=== PATIENT | female | born 2000 | race Caucasian/White ===

== ENCOUNTER 2023-04-09 10:06 | Outpatient (CLI) | payer OTHER, SELFPAY ==
--- NOTE | ~2023-04-09 | US_ITS ---
EXAMINATION: US venous doppler [facility] DATE: 04/09/2023 10:41 INDICATION: Lower limb pain TECHNIQUE: Grayscale ultrasound images without and with compression and Doppler ultrasound images of the left lower extremity veins were obtained. COMPARISON: None. FINDINGS: The visualized portions of left common femoral vein, profunda (deep) femoral vein, femoral vein, popl iteal vein, peroneal veins, posterior tibial veins, gastrocnemius vein and greater saphenous vein out flow are patent. IMPRESSION: 1. No deep venous thrombosis in the left lower limb. Reviewed, dictated and finalized at location A.
== END 2023-04-09 10:07 | disposition home or self-care (01) ==
PROVIDERS: Visit Provider Obstetrics & Gynecology
DX: M79.606 Pain in leg, unspecified (principal); Z33.1 Pregnant state, incidental; M79.662 Pain in left lower leg
CPT/HCPCS: 93971

== ENCOUNTER 2023-09-04 16:14 | Observation (INO) | payer OTHER, SELFPAY ==
[2023-09-04 17:45] LABS: Appearance Urine Clear (Clear); Bilirubin Urine Negative (Negative); Blood Urine Negative (Negative); Color Urine Yellow (Yellow); Glucose Urine UA Negative (Negative); Ketones Urine Negative (Negative); Leukocyte Esterase Ur Negative LEU/UL (Negative); Nitrate Urine Negative (Negative); Protein Urine Negative (Negative); Specific Grav Ur 1.008 (1.001-1.035); Urobilinogen Urine 0.2 mg/dL (<2.0)
[2023-09-04 17:48] LABS: Add Urine Microscopic? NO
--- NOTE | 2023-09-16 08:12 | PM.OBTRLD ---
OB - Triage/Final Diagnosis Visit Information Comments/Additional reasons for admission: I have assessed the risk for this patient, Leonor Phillips, and determined that she would benefit from observation care. Evaluation Laboratory results: Laboratory Tests 09/04/23 17:14 Urine Color Yellow Urine Appearance Clear Urine pH 6.0 Ur Specific [place] 1.008 Urine Protein Negative Urine Glucose (UA) Negative Urine Ketones Negative Ur Blood (Man) Negative Urine Nitrate Negative Urine Bilirubin Negative Urine Urobilinogen 0.2 Leukocyte Esterase Rfl Negative Final Diagnosis (1) False labor: Code(s): O47.9 - False labor, unspecified Status: Acute
== END 2023-09-04 18:05 | disposition home or self-care (01) ==
PROVIDERS: Admitting Provider Obstetrics & Gynecology; Visit Provider Obstetrics & Gynecology
DX: O47.1 False labor at or after 37 completed weeks of gestation (principal); Z3A.37 37 weeks gestation of pregnancy
CPT/HCPCS: 81003; 84112; G0378; G0379

== ENCOUNTER 2023-09-16 04:40 | Inpatient (IN) | payer OTHER, SELFPAY ==
[2023-09-16] VITALS (104 sets, daily range): BP systolic 104–141; BP diastolic 52–89; PULSE 62–270; RESP 16–20; TEMP 36.4–36.6; O2SAT 93–100; BMI 30.8
[2023-09-16 05:10] LABS: Basophils Percent Auto 0.3 % (0.2-1.2); Eosinophils Percent Auto 0.3 % (0-4.4); Hematocrit 36.6 % (37.0-47.0); Hemoglobin 11.7 g/dL (12.0-15.0); Immature Granulocyte Absolute 0.15 K/mm3 (0.00-0.031); Immature Granulocyte Percent A 1.4 % (0-0.5); Lymphocytes Absolute Auto 2.94 K/mm3 (0.9-3.2); Lymphocytes Percent Auto 26.5 % (18.3-44.2); Mean Corpuscular Hemoglobin 28.2 pg (26-34); Mean Corpuscular Volume 88.2 fl (80-100); Mean Platelet Volume 10.6 fl (7.4-10.4); Monocytes Absolute Auto 1.1 K/mm3 (0.1-0.6); Monocytes Percent Auto 9.7 % (2.6-8.5); Neutrophils Absolute Auto 6.9 K/mm3 (1.3-6.7); Neutrophils Percent Auto 61.8 % (45.5-73.1); Platelet Count Result 257 k/mm3 (150-375); Red Blood Count 4.15 M/mm3 (4.2-5.4); Red Cell Distribution Width 14.2 % (11.5-14.5); White Blood Count 11.1 K/mm3 (4.5-10.0)
[2023-09-16] MEDS: FAMOTIDINE 20 MG/2 ML VIAL IV PUSH (05:24)
[2023-09-16] MEDS: OXYTOCIN 30 UNITS/NS 500 ML 30 UNITS/500 ML BAG 6 UNITS IV CONT (05:29)
[2023-09-16] MEDS: LACTATED RINGERS 1,000 ML 125 ML IV CONT (05:30)
--- NOTE | 2023-09-16 06:15 | WPDANESEPPF ---
Anes - Initial Pre Proc Eval Procedure: Labor Epidural Date/Time: 09/16/23 06:15 Surgeon: Tarik Knox MD Pre Op Diagnosis: Labor Pain Pre Op Diagnosis: IOL Patient Data Age: 23 Gender: F Height: 1.65 m Weight: 84 kg Last Vital Signs Pulse 105 H 09/16/23 05:15 BP 141/88 H 09/16/23 05:15 Allergies Allergy/AdvReac Type Severity Reaction Status Date / Time No Known Allergies Allergy Verified 08/20/23 15:26 Home Medications Medication Instructions Recorded Confirmed Type Classic 1 tab-cap PO DAILY 08/20/23 08/20/23 History Lexapro 10 mg PO DAILY 08/20/23 08/20/23 History Laboratory Tests 09/16/23 04:50 WBC 11.1 H K/mm3 (4.5-10.0) RBC 4.15 L M/mm3 (4.2-5.4) Hgb 11.7 L g/dL (12.0-15.0) Hct 36.6 L % (37.0-47.0) MCV 88.2 fl (80-100) MCH 28.2 pg (26-34) MCHC 32.0 g/dl (32-36) RDW 14.2 % (11.5-14.5) Plt Count 257 k/mm3 (150-375) MPV 10.6 H fl (7.4-10.4) Immature Gran % (Auto) 1.4 H % (0-0.5) Neut % (Auto) 61.8 % (45.5-73.1) Lymph % (Auto) 26.5 % (18.3-44.2) [place] % (Auto) 9.7 H % (2.6-8.5) Eos % (Auto) 0.3 % (0-4.4) Baso % (Auto) 0.3 % (0.2-1.2) Lymph # (Auto) 2.94 K/mm3 (0.9-3.2) [place] # (Auto) 1.1 H K/mm3 (0.1-0.6) Eos # (Auto) 0.0 K/mm3 (0-0.3) Baso # (Auto) 0.0 K/mm3 (0.0-0.1) Abs Immat Gran (auto) 0.15 H K/mm3 (0.00-0.031) Absolute Neuts (auto) 6.9 H K/mm3 (1.3-6.7) Absolute Nucleated RBC 0.0 K/mm3 (0.0-0.012) Nucleated RBC % 0.0 % (0.0-0.2) RPR Pending Patient hx anesthesia problems: none Family hx anesthesia problems: none Results Review: All pre-operative results and documents have been reviewed as part of the pre-operative evaluation. PMFSH Family History Family History Other No pertinent family history Social History Social History Smoking status: Former smoker Tobacco type: e-cigarettes/vaping Second hand tobacco smoke exposure: No Substance use: never Do You Feel Safe in your Home?: Yes Lack of Transportation: No Lack of Food: Never True Current Housing: I Have Housing Concerned About Future Housing: No Difficulty Paying Gas/Electric Bills: No Difficulty Paying for Meds: No Currently Unemployed: No Education: High School Diploma/GED Difficulty w/ Childcare or Family Care: No Spiritual care concerns: No Anes - Eval Final PreProcedure Day of Procedure 09/16/23 06:15 Patient weight: normal Heart: regular rate and rhythm Lungs: clear to auscultation Neurological: alert and oriented ASA classification: II Emergent: no Anesthetic plan: proceed Anesthesia type and monitoring: regional epidural and standard monitoring Results Review: All pre-operative results and documents have been reviewed as part of the pre-operative evaluation. Informed Consent: The patient's anesthetic plan and its attendant risks and benefits were discussed with the patient/family/POA. Questions were solicited and answers provided to the satisfaction of the patient/family/POA.
--- NOTE | 2023-09-16 06:40 | PM.IMHP ---
H&P: HPI History of Present Illness Date/Time: 09/16/23 06:40 Chief Complaint: Term for induction of labor Narrative: this is a 23-year-old 1 para 0 whose last menstrual period was 12/13/2022, EDC is 09/20/2023, confirmed by 10 week ultrasound presents at 39 weeks gestation for induction of labor. She is negative for group B strep and has a favorable cervix. Risks and benefits of induction reviewed [facility] Family History Family History Other No pertinent family history Social History Social History Smoking status: Former smoker Tobacco type: e-cigarettes/vaping Second hand tobacco smoke exposure: No Substance use: never Do You Feel Safe in your Home?: Yes Lack of Transportation: No Lack of Food: Never True Current Housing: I Have Housing Concerned About Future Housing: No Difficulty Paying Gas/Electric Bills: No Difficulty Paying for Meds: No Currently Unemployed: No Education: High School Diploma/GED Difficulty w/ Childcare or Family Care: No Spiritual care concerns: No Meds Home Medications and Allergies Home Medications Medication Instructions Recorded Confirmed Type Classic 1 tab-cap PO DAILY 08/20/23 08/20/23 History Lexapro 10 mg PO DAILY 08/20/23 08/20/23 History Allergies Allergy/AdvReac Type Severity Reaction Status Date / Time No Known Allergies Allergy Verified 08/20/23 15:26 Vital Signs Vital Signs - 24 hr 09/16/23 05:11 09/16/23 05:15 09/16/23 06:19 Pulse Rate 105 H 105 H Blood Pressure 137/89 141/88 H Pulse Oximetry 93 09/16/23 06:24 09/16/23 06:27 09/16/23 06:29 Pulse Rate 270 H Blood Pressure 124/72 Pulse Oximetry 100 99 09/16/23 06:34 09/16/23 06:35 09/16/23 06:39 Pulse Rate 98 98 Blood Pressure 137/86 132/77 Pulse Oximetry 96 97 09/16/23 06:40 Pulse Rate 86 Blood Pressure 117/70 Pulse Oximetry Exam Const: General: cooperative, healthy appearing and comfortable Nutritional Appearance: average body habitus Orientation/consciousness: oriented to person, oriented to place and oriented to time HENMT: Head: normal to inspection Resp: Effort & Inspection: normal respiratory effort Cardio: Rate: regular rate Rhythm: regular rhythm Heart sounds: S1 normal heart sound present and S2 normal heart sound present GI: Inspection: normal to inspection ( gravid soft uterus) : External Female Exam: normal external appearance Speculum Exam - Vagina: normal appearance of the vagina Speculum Exam - Cervix: normal appearance of the cervix ( cervix . FHTs reassuring. Epidural in) H&P: Results Labs Labs: Short CBC 09/16/23 Range/Units 04:50 WBC 11.1 H (4.5-10.0) K/mm3 Hgb 11.7 L (12.0-15.0) g/dL Hct 36.6 L (37.0-47.0) % Plt Count 257 (150-375) k/mm3 Assessment and Plan Assessment and plan (1) Term : Code(s): Z34.90 - Encounter for supervision of normal , unspecified, unspecified trimester Status: Acute Plan medical induction of labor. Epidural in and working. Spontaneous vaginal delivery is expected.
--- NOTE | 2023-09-16 06:43 | WPDANESEPN ---
Anes - Epidural Procedure Note Date/Time: 09/16/23 06:43 Consent: I have discussed with the patient/family/POA, the placement of an epidural catheter and the use of epidural narcotic/local anesthetic for labor analgesia and/or postoperative pain management, including associated potential risks, benefits, complications and side effects. I have discussed alternative methods of labor analgesia and/or postoperative pain management. The patient/family/POA, understand(s) and wish(es) to proceed with epidural narcotic/local anesthetic for labor analgesia and/or postoperative pain management. Time-Out: A pre-procedural Time-Out was completed immediately before starting the procedure and confirmed: Patient Identification, Site, Procedure, Patient Position and the Availability of Requisite Equipment. Clinical Indications: Labor pain Epidural Insertion Note Patient position: sitting Skin prep: chlorhexidine and sterile drape Needle: 18g Tuohy-Schliff Catheter: 20g Unstyleted Technique: Loss of resistance. Level of insertion: L3/4 Catheter skin juventino (cm): 10 Length in epidural space (cm): 5 Skin anesthesia: lidocaine 1% Test dose: 1.5% Lidocaine with 1:[id number] Epi, negative for subarachnoid Inj and negative for intravascular Inj Time of test dose: 06:34 Observations: tolerated well Complications: none
[2023-09-16] MEDS: ONDANSETRON INJ 4 MG/2 ML VIAL IV PUSH (06:49)
--- NOTE | 2023-09-16 09:31 | PM.DS ---
DS: Admitting Diagnosis Discharge Date 09/17/2023 Admitting Diagnosis Term DS: Discharge Diagnosis Discharge Diagnosis (1) Term : Code(s): Z34.90 - Encounter for supervision of normal , unspecified, unspecified trimester Status: Acute DS: Summary Hospital Course Reason for hospitalization: patient was admitted for induction of labor at39+ weeks gestation on 09/16/2023 Hospital Course: patient with successful spontaneous vaginal delivery at 9:20 a.m. on 09/16/2023. Her hospital course was unremarkable. She remained afebrile. She was up, voiding difficulty, eating regular diet, ambulating, generally without complaints Time Spent with Patient Time attestation: Total time spent providing and/or coordinating discharge services: Exam Const: General: cooperative, healthy appearing and comfortable Nutritional Appearance: average body habitus Orientation/consciousness: oriented to person, oriented to place and oriented to time Resp: Effort & Inspection: normal respiratory effort Cardio: Rate: regular rate Rhythm: regular rhythm Heart sounds: S1 normal heart sound present and S2 normal heart sound present GI: Inspection: normal to inspection ( fundus firm below umbilicus) DS: Data Data Completed and Pending Labs on day of discharge: Labs from last 24 hours 09/16/23 04:50 WBC 11.1 H RBC 4.15 L Hgb 11.7 L Hct 36.6 L MCV 88.2 MCH 28.2 MCHC 32.0 RDW 14.2 Plt Count 257 MPV 10.6 H Immature Gran % (Auto) 1.4 H Neut % (Auto) 61.8 Lymph % (Auto) 26.5 [place] % (Auto) 9.7 H Eos % (Auto) 0.3 Baso % (Auto) 0.3 Lymph # (Auto) 2.94 [place] # (Auto) 1.1 H Eos # (Auto) 0.0 Baso # (Auto) 0.0 Abs Immat Gran (auto) 0.15 H Absolute Neuts (auto) 6.9 H Absolute Nucleated RBC 0.0 Nucleated RBC % 0.0 RPR Pending Blood Type O Positive Antibody Screen Negative Discharge Plan Discharge Attending physician on discharge: Tarik Duran Discharging Clinician: Tarik Duran Patient Disposition: Home, Self-Care Activity: may shower and pelvic rest Diet: heart healthy Wound Care Instructions: follow printed instructions Patient Instructions: Antibiotic Form Stand Alone Forms: General Discharge Information Follow-up/Referrals: Tarik Duran MD [Physician] - Discharge Medications: Continued Classic 1 tab-cap PO DAILY Lexapro 10 mg PO DAILY Date of admission: 09/16/23 04:40 Primary Care Provider: PHYSICIAN NOT ON STAFF,NONSTAFF Admitting Provider: Tarik Duran Attending physician on admission: Tarik Duran Condition: Stable
--- NOTE | 2023-09-16 09:33 | PM.OBPRVD ---
OB - Vaginal Delivery Note Procedure Delivery date: 09/16/23 Events: Elective Induction of Labor Induction method: AROM Delivery augmentation: Pitocin Delivery monitor: External FHT and External Uterine Route of delivery: Episiotomy description: None Laceration Description: Perineal - 1st Degree Delivery repair: vicryl Quantitative Blood Loss (ml): 61 Anesthesia type: Epidural Disposition: Floor Complications: No immediate complications Baby Date of : 09/16/23 Time of : 09:20 Weeks of gestation at delivery: 39 Infant gender: Male presentation: vertex position: Right Occiput Anterior Placenta delivery description: Spontaneous Cord Vessel Description: 3 Vessels score one minute: 8 score five minutes: 9
[2023-09-16] MEDS: OXYTOCIN 30 UNITS/NS 500 ML 30 UNITS/500 ML BAG 125 UNITS IV CONT (09:53)
--- NOTE | 2023-09-16 11:40 | PC.NURSE ---
Patient transferred to post room #292 via wheelchair. Support person present. Oriented to unit, room, information board, rooming in, admission packet and security measures. Patient verbalizes understanding.
[2023-09-16 14:37] LABS: Rapid Plasma Reagin Non-Reactive (NonReactive)
[2023-09-16] MEDS: ACETAMINOPHEN 325 MG TABLET 650 MG PO (15:55)
[2023-09-16] MEDS: DOCUSATE SODIUM 100 MG CAPSULE PO (15:57)
[2023-09-17] VITALS: BP 102/61; PULSE 68; RESP 16; TEMP 36.4; O2SAT 100
[2023-09-17] MEDS: ACETAMINOPHEN 325 MG TABLET 650 MG PO (04:39)
[2023-09-17 06:05] LABS: Hematocrit 31.9 % (37.0-47.0); Hemoglobin 9.7 g/dL (12.0-15.0)
--- NOTE | 2023-09-17 06:13 | PM.OBPNVD ---
OB - PN: Subj Subjective Date/time seen: 09/17/23 06:13 Patient comments: no complaints and pain well controlled baby status: doing well OB - PN: Obj Data Labs 09/16/23 04:50 Labs: Laboratory Results - last 24 hr 09/16/23 04:50 RPR Non-reactive Blood Type O Positive Antibody Screen Negative OB - PN A/P Plan day: 1 Plan: routine care Time Spent With Patient Time: Total time spent is greater than 50% in coordination of care (as documented) at patient's floor/unit and/or counseling patient: Time with patient: less than 15 minutes Exam Const: General: cooperative, healthy appearing and comfortable Nutritional Appearance: average body habitus Orientation/consciousness: oriented to person, oriented to place and oriented to time HENMT: Head: normal to inspection Resp: Effort & Inspection: normal respiratory effort Cardio: Rate: regular rate Rhythm: regular rhythm Heart sounds: S1 normal heart sound present and S2 normal heart sound present GI: Inspection: normal to inspection
[2023-09-17] MEDS: MULTIVIT/MIN/PREN/FOL AC/IRON TABLET 1 TAB PO (07:24)
[2023-09-17] MEDS: POLYSACCHARIDE IRON COMPLEX 150 MG CAPSULE PO ×2 (07:24→17:30)
[2023-09-17] MEDS: DOCUSATE SODIUM 100 MG CAPSULE PO (07:24)
[2023-09-17] MEDS: IBUPROFEN 600 MG TABLET PO ×3 (07:26→21:35)
[2023-09-17 08:20] VITALS: BP 111/68; PULSE 68; RESP 16; TEMP 36.8; O2SAT 100
--- NOTE | 2023-09-17 08:22 | WPDANLDPN2 ---
Anes-Prog Note L&D Date/Time: 09/17/23 08:22 Neuro status: Neuro function grossly intact. Cardiovascular status: normal Respiratory status: normal Airway patency: baseline Mental status: baseline Post-Op hydration status: normal Vital Signs: Last Vital Signs Temp 36.4 C 09/17/23 00:00 Pulse 68 09/17/23 00:00 Resp 16 09/17/23 00:00 BP 102/61 09/17/23 00:00 Pulse Ox 100 09/17/23 00:00 O2 Del Method Room Air 09/17/23 07:30 Pain score (VAS): 0 I/O: Intake & Output 09/16/23 09/17/23 09/17/23 23:59 07:59 15:59 Intake Total 240 Balance 240 Post-procedural complaints: none Patient feedback: Patient satisfied with anesthetic care.
--- NOTE | 2023-09-17 16:10 | PC.NURSE ---
[phone] Introductions were made, then consulted with patient to assess needs related to . Mother led the conversation with her?plans to feed?her infant, the?experience so far and mother has latched to the left breast using the nipple shield. Reviewed good handwashing, cleaning the nipple shield and the appropriate way to apply and use as a tool. Discussed with mom the nipple shield precautions, possible complications associated with the risks and benefits. Reviewed practicing with a nipple shield, then without and how to protect the milk supply and production. After taking off the shield the visual assessment shows to small blood blisters on the left nipple. Mother is willing to latch infant without the nipple shield and latched optimally to the left breast in cross cradle position. Education given to the mother of how to visualize the suckling (with good rocking jaw motion), swallows (dropping of the lower jaw) and how to listen for drinking at the breast (the ka sound). Infant was able to maintain latch without pain to mother protecting the nipple with optimal positioning and latching with/without the nipple shield. Reviewed good handwashing when , touching the breast/nipples to prevent infection and cleaning of the nipple shield if used to latch. Mother voiced understanding of skin to skin, stimulating with massage touch, responsive feedings, hand expressed colostrum, talking to to encourage if it has been 2 -2.5 hours since the start of the last , to call if does not latch, or if there is discomfort with . Resources used for education were facilitated with the tool, mom and baby guide. Inpatient/outpatient resources provided with feeding sheet, name written on the communication board, and the mom/baby guide. Parents voiced understanding of information, demonstrated learning, will call if there is a request for assistance and mother has a [facility] resource by the name of Rosaline to meet with at home after discharge tomorrow. Reported to the Primary RN.
[2023-09-17 19:00] VITALS: BP 118/80; PULSE 68; RESP 18; TEMP 36.8; O2SAT 98
[2023-09-18 08:05] VITALS: BP 106/67; PULSE 75; RESP 16; TEMP 36.6; O2SAT 100
[2023-09-18] MEDS: MULTIVIT/MIN/PREN/FOL AC/IRON TABLET 1 TAB PO (08:11)
[2023-09-18] MEDS: IBUPROFEN 600 MG TABLET PO (08:11)
[2023-09-18] MEDS: DOCUSATE SODIUM 100 MG CAPSULE PO (08:11)
[2023-09-18] MEDS: POLYSACCHARIDE IRON COMPLEX 150 MG CAPSULE PO (08:11)
--- NOTE | 2023-09-18 10:02 | PC.NURSE ---
Patient viewed the discharge video Mother & Baby Care, The First Two Weeks . Patient was given the opportunity and encouraged to ask questions. Patient verbalized understanding of information shared and has been given the mother/baby guide for home reference.
--- NOTE | 2023-09-18 12:32 | PC.NURSE ---
Pt. has Pedi appointment scheduled 11:00 on . No follow-up appointment scheduled
--- NOTE | 2023-09-18 13:19 | PC.NURSE ---
[id number] Mother led the conversation with her experience so far, plan to feed her , and her ability to independently latch optimally without discomfort with exception to the challenges of latching last night and this morning related to engorgement with her milk coming to full volume. Reminded mother to use good handwashing technique to prevent infection and demonstrated reverse pressuring and hand expression to remove milk so breast will be softer for better latching. Mother is feeding appropriately for growth of and understands stimulating infant to eat if needed. Infant has had appropriate feedings in the last 24 hours meets the outcomes for weight, output, blood sugar and jaundice at this time. Mother states she is confident to continue effectively her infant at home, when to call for assistance, and demonstrates optimally latching infant to the left breast using the sandwich hold, cross cradle positioning after we softened the engorged breast. Reinforced understanding of milk production, transition of milk, signs of adequate intake, transition of stool, prevention/relief of engorgement, plugged ducts, mastitis, responsive watching for feeding cues, the different methods of stimulating infant to breastfeed 1-3 hours after the start of the last feeding, community resources, reviewed the state law for work accommodations for , and when to call a provider using the resource of the feeding sheet and the mom and baby guide. Mother voiced understanding of the education shared.
== END 2023-09-18 12:45 | disposition home or self-care (01) | DRG 807 ==
LOC: ANHLDR 09:33 → ANHOB2 11:43
PROVIDERS: Admitting Provider Obstetrics & Gynecology; Visit Provider Obstetrics & Gynecology
DX: O70.0 First degree perineal laceration during delivery (principal); Z37.0 Single live birth; Z3A.39 39 weeks gestation of pregnancy
CPT/HCPCS: 36415; 85014; 85018; 85025; 86592; 86850; 86900; 86901; A9270; J2405; J2590; J2795; J7120

== ENCOUNTER 2024-04-12 12:51 | Emergency (ER) | payer OTHER, SELFPAY ==
--- NOTE | 2024-04-12 13:09 | ED.SKABFB ---
HPI - Skin/Abscess/Foreign Bdy General Chief complaint: Skin/Abscess/Foreign Body Stated complaint: L side pain radiates to back Time Seen by Provider: 04/12/24 13:09 Source: patient Mode of arrival: ambulatory Limitations: no limitations History of Present Illness HPI narrative: 23-year-old female presents with complaint of red bump to left breast since yesterday evening. Reports painful. Mild itching. Has not taking any [id number] medications to treat symptoms. Afebrile. All systems reviewed and negative except as noted above. Related Data Home Medications Medication Instructions Recorded Confirmed escitalopram oxalate 10 mg tablet mg 04/12/24 04/12/24 rizatriptan 10 mg tablet mg 04/12/24 topiramate 50 mg tablet mg 04/12/24 Allergies Allergy/AdvReac Type Severity Reaction Status Date / Time No Known Allergies Allergy Verified 08/20/23 15:26 Review of Systems Review of Systems: CONSTITUTIONAL: Denies fever, chills, or sweats. EYES: Denies visual changes, redness, or discharge. ENT: Denies rhinorrhea, congestion, sore throat, or otalgia. CARDIOVASCULAR: Denies chest pain, palpitations, or edema. RESPIRATORY: Denies cough or dyspnea. GASTROINTESTINAL: Denies abdominal pain, nausea, vomiting, or diarrhea. GENITOURINARY: Denies dysuria or hematuria. SKIN: Denies rash or itching. Reports painful insect bite to left breast. MUSCULOSKELETAL: Denies back pain, joint pain, or myalgia. NEUROLOGIC: Denies headache, numbness, or weakness. PSYCHIATRIC: Denies anxiety or depression. All other systems reviewed are negative, except as documented in HPI. [facility] Family History Family History Other No pertinent family history Social History Social History Smoking status: Former smoker Tobacco type: e-cigarettes/vaping Second hand tobacco smoke exposure: No Substance use: never Do You Feel Safe in your Home?: Yes Lack of Transportation: No Lack of Food: Never True Current Housing: I Have Housing Concerned About Future Housing: No Difficulty Paying Gas/Electric Bills: No Difficulty Paying for Meds: No Currently Unemployed: No Education: High School Diploma/GED Difficulty w/ Childcare or Family Care: No Spiritual care concerns: No Comments At time of signature, agree with nursing past medical, surgical, social and family history. There is no relevant family history pertinent to the presenting complaint. Exam Narrative: GENERAL: This is a well-nourished, well-developed patient, in no apparent distress. HEAD: normocephalic, atraumatic. EYES: PERRL. Sclera clear/white. Vision is grossly intact. EARS: External ears normal NOSE: External nose normal NECK: Neck supple, non-tender without lymphadenopathy, masses or thyromegaly. CARDIOVASCULAR: Regular rate and rhythm without murmurs, gallops, or rubs. RESPIRATORY: Clear to auscultation. Breath sounds equal bilaterally. No wheezes, rales, or rhonchi. SKIN: warm, Dry, intact with no suspicious rash, good texture and turgor. Erythematous papule to underneath of left breast approximately 1 cm diameter with another 1 cm diameter of erythema. Tender on palpation. No fluctuance concerning for abscess. No drainage noted. NEURO: awake, alert, and oriented to person, place and time. There were no obvious focal neurologic abnormalities. EXTREMITIES: No joint tenderness, effusion, or edema noted. Course Course Level of Care: Express Care Visit Vital Signs Vital signs: Reviewed MDM - Skin/Abscess/Foreign Bdy MDM Narrative Medical decision making narrative: Patient is aware of diagnosis, understands and agrees to treatment plan. Anticipatory guidance given. Patient agrees to follow-up as directed and is aware of reasons to seek care at the emergency department. Portions of this record may have been cr
[2024-04-12 13:36] VITALS: BP 128/75; PULSE 80; RESP 18; TEMP 37.2; O2SAT 100
== END 2024-04-12 13:30 | disposition home or self-care (01) ==
PROVIDERS: Emergency Provider Nurse Practitioner Family
DX: S20.162A Insect bite (nonvenomous) of breast, left breast, initial encounter (principal); L08.9 Local infection of the skin and subcutaneous tissue, unspecified
CPT/HCPCS: 99213; G0463

== ENCOUNTER 2024-04-24 09:34 | Outpatient (CLI) | payer OTHER, SELFPAY | END 2024-04-24 09:35 | disposition home or self-care (01) | LOC: ANHLAB 09:36 | PROVIDERS: Visit Provider Obstetrics & Gynecology | DX: R10.2 Pelvic and perineal pain (principal) | CPT/HCPCS: 36415; 86850; 86900; 86901 ==

== ENCOUNTER → 2024-04-29 02:03 | Day surgery (SDC) | payer OTHER, SELFPAY ==
[2024-04-22 13:49] VITALS: BMI 25.7
--- NOTE | 2024-04-22 14:19 | PC.NURSE ---
Report to the Outpatient Waiting Room, entrance under the green pavilion located off [facility], at 0630 on 04-29-24. Planned Procedure Time: 0830. Time changes happen often and if your time is changed the preop area will call you the afternoon before. - You and your visitor will be asked to self-screen and do not enter if you have any COVID symptoms. - A mask is optional within the hospital at this time. Patients may have clear liquids (water, carbonated beverages, clear teas, apple juice) until 3 hours prior to surgery with a maximum of 20 ounces. 0530 - No food from midnight until time of surgery - Infants may have breast milk until 4 hours before surgery, formula 6 hours prior to surgery. - Children will be allowed to drink immediately following surgery. If applicable, please bring a bottle or sippy cup to assist with drinking. Juice, water, soda, and popsicles are readily available. For infants on formula, please bring formula the day of surgery. Pacifiers are allowed. Take the following medications with a SIP of water the morning of surgery: None DO NOT STOP ANY OF YOUR OTHER PRESCRIPTION MEDICATIONS PRIOR TO SURGERY EXCEPT THE FOLLOWING Medications to discontinue per physician: Aleve Date to take last dose: Per Dr. Julieta Knox Please no make-up, nail macanese, hairspray, perfume, deodorant, or body powder the day of surgery. No jewelry (including any body piercings) or valuables the day of surgery, leave them at home. Please take a shower or bath the night before, or the morning of, surgery with an antibacterial soap. Wear comfortable, loose fitting clothing. Children are encouraged to wear pajamas. - Jewelry must be removed prior to entering the operating room. Rings and piercings that are not removed may be cut off. - The hospital will not accept responsibility for valuables. - Please leave all valuables, including medications, at home the day of surgery. If you are going home after surgery, a licensed dedicated local truck driver must drive you home. - NO public transportation without another adult if you receive anesthesia. - We recommend that an adult stay with you for 24 hours following discharge. - We also recommend that you do not drive, make important decision, drink alcoholic beverages, or take any drugs that were not prescribed by your health care provider for at least 24 hours after your discharge time. For Pediatric surgeries, we recommend two adults accompany the child home. Follow any additional instructions given to you from your surgeon. If you or anyone in your household have experienced Covid symptoms in the past week, please notify your surgeon or the nurse liaison at the phone number below for possible testing. Telephone instructions given to Leonor Phillips and asked if any additional questions and then verbalized understanding. Patient advised to call surgeon office or pre surgery nurse liaison [phone] if any additional questions.
--- NOTE | 2024-04-28 06:32 | PM.IMHP ---
H&P: HPI History of Present Illness Date/Time: 04/28/24 06:32 Chief Complaint: Pelvic pain and dyspareunia Narrative: 23-year-old para laparoscopy secondary to pelvic pain and dyspareunia. She has been on Depo-Provera and having no periods. She states she has intense severe pelvic pain which is cyclic despite having periods she underwent ultrasound which showed no findings. There is a family history of for endometriosis she this is expected. Risks and benefits of this procedure were reviewed including but not exclusive of , aspiration pneumonia, bleeding, transfusion, perforation injury to bowel, bladder, ureters, or other internal organs with need for open laparotomy. She received the [employer] handout entitled laparoscopy. She had all questions answered. She asked to proceed PMFSH Family History Family History Other No pertinent family history Social History Social History Smoking status: Current every day smoker Tobacco type: e-cigarettes/vaping Second hand tobacco smoke exposure: Yes (parents/grandparents) Additional smoking assessment comments: Vaped for about 4 years on and off Alcohol intake: current Alcohol use details: Rarely Substance use: never Substance use type: does not use Do You Feel Safe in your Home?: Yes Lack of Transportation: No Lack of Food: Never True Current Housing: I Have Housing Concerned About Future Housing: No Difficulty Paying Gas/Electric Bills: No Difficulty Paying for Meds: No Currently Unemployed: No Education: High School Diploma/GED Difficulty w/ Childcare or Family Care: No Living arrangements: with family Spiritual care concerns: No Meds Home Medications and Allergies Home Medications Medication Instructions Recorded Confirmed Type escitalopram oxalate 10 mg tablet 10 mg PO DAILY 04/12/24 04/22/24 History topiramate 50 mg tablet 50 mg PO DAILY 04/12/24 04/22/24 History medroxyprogesterone 150 mg/mL 150 mg IM USEASDIRECTD 04/22/24 04/22/24 History intramuscular syringe (Depo-Provera) naproxen sodium 220 mg tablet 440 mg PO Q8H PRN Pain 04/22/24 04/22/24 History (Aleve) Allergies Allergy/AdvReac Type Severity Reaction Status Date / Time acetaminophen [From Tylenol] Allergy Intermediate Hives Verified 04/22/24 13:43 Exam Const: General: cooperative and healthy appearing Nutritional Appearance: average body habitus Orientation/consciousness: oriented to person, oriented to place and oriented to time Resp: Effort & Inspection: normal respiratory effort Cardio: Rate: regular rate Rhythm: regular rhythm Heart sounds: S1 normal heart sound present and S2 normal heart sound present GI: Inspection: normal to inspection : External Female Exam: normal external appearance Speculum Exam - Vagina: normal appearance of the vagina Speculum Exam - Cervix: normal appearance of the cervix Bimanual Exam- Adnexa, other: tender bilaterally Assessment and Plan Assessment and plan (1) Pelvic pain: Code(s): R10.2 - Pelvic and perineal pain Status: Acute (2) Dyspareunia: Status: Acute Assessment and Plan: Proceed with diagnostic laparoscopy
[2024-04-29] VITALS (7 sets, daily range): BP systolic 92–115; BP diastolic 51–74; PULSE 61–88; RESP 12–22; TEMP 36.2–36.4; O2SAT 99–100
--- NOTE | 2024-04-29 04:39 | WPDHPUPDATE1 ---
History and Physical Update Update Date/Time: 04/29/24 04:39 History and Physical has been reviewed, including an updated exam of the patient. There are NO changes in the patient's condition. Risks, benefits, and alternatives have been discussed and questions answered. Patient agrees to proceed with procedure.
[2024-04-29] MEDS: KETOROLAC 15 MG/ML VIAL (*BKC) IV PUSH (07:15)
[2024-04-29] MEDS: LACTATED RINGERS 1,000 ML 30 ML IV CONT (07:15)
[2024-04-29 07:43] LABS: BEDSIDEPREGUCG Negative
--- NOTE | 2024-04-29 07:44 | P.PNAN_ITS ---
Anes - Initial Pre Proc Eval Procedure: Operation Date: 04/29/24 08:30 Proposed Procedures p Diagnostic Laparoscopy - Tarik Knox MD Date/Time: 04/29/24 07:44 Surgeon: Tarik Knox MD Pre Op Diagnosis: pelvic pain, dysmenorrhea,dyspareunia Patient Data Age: 23 Gender: F Height: 1.65 m Weight: 68.3 kg Last Vital Signs Temp 97.1 F L 04/29/24 07:15 Pulse 81 04/29/24 07:15 Resp 14 04/29/24 07:15 BP 115/71 04/29/24 07:15 Pulse Ox 100 04/29/24 07:15 O2 Del Method Room Air 04/29/24 07:15 Allergies Allergy/AdvReac Type Severity Reaction Status Date / Time acetaminophen [From Tylenol] Allergy Intermediate Hives Verified 04/29/24 07:43 Home Medications Medication Instructions Recorded Confirmed Type escitalopram oxalate 10 mg tablet 10 mg PO DAILY 04/12/24 04/22/24 History topiramate 50 mg tablet 50 mg PO DAILY 04/12/24 04/22/24 History medroxyprogesterone 150 mg/mL 150 mg IM USEASDIRECTD 04/22/24 04/22/24 History intramuscular syringe (Depo-Provera) naproxen sodium 220 mg tablet 440 mg PO Q8H PRN Pain 04/22/24 04/22/24 History (Aleve) Laboratory Tests 04/29/24 07:15 POC Urine HCG, Qual Negative POC Ur Preg QC Yes Patient hx anesthesia problems: none Family hx anesthesia problems: none Results Review: All pre-operative results and documents have been reviewed as part of the pre- operative evaluation. [facility] Family History Family History Other No pertinent family history Social History Social History Smoking status: Current every day smoker Tobacco type: e-cigarettes/vaping Second hand tobacco smoke exposure: Yes (parents/grandparents) Additional smoking assessment comments: Vaped for about 4 years on and off Alcohol intake: current Alcohol use details: Rarely Substance use: never Substance use type: does not use Do You Feel Safe in your Home?: Yes Lack of Transportation: No Lack of Food: Never True Current Housing: I Have Housing Concerned About Future Housing: No Difficulty Paying Gas/Electric Bills: No Difficulty Paying for Meds: No Currently Unemployed: No Education: High School Diploma/GED Difficulty w/ Childcare or Family Care: No Living arrangements: with family Spiritual care concerns: No Anes - Eval Final PreProcedure Day of Procedure 04/29/24 07:44 Patient weight: normal Heart: regular rate and rhythm Lungs: clear to auscultation Airway: Mallampati scale class II Neurological: alert and oriented Last oral intake: >/= 8 hours ASA classification: II Emergent: no Anesthetic plan: proceed Anesthesia type and monitoring: general ETT and standard monitoring Results Review: All pre-operative results and documents have been reviewed as part of the pre- operative evaluation. Informed Consent: The patient's anesthetic plan and its attendant risks and benefits were discussed with the patient/family/POA. Questions were solicited and answers provided to the satisfaction of the patient/family
--- NOTE | 2024-04-29 08:49 | P.OP_ITS ---
Procedure Note - Detailed Date of Procedure 04/29/24 Pre-op Diagnosis pelvic pain, dysmenorrhea,dyspareunia Post-op Diagnosis Other (Pelvic pain / dyspareunia/ right ovarian cyst/adhesions/ endometriosis) Procedure Performed laparoscopy with cauterization of endometriosis lysis of adhesions. Destruction of right ovarian cyst Surgeon Tarik Knox MD Anesthesia General Indications this is a 23-year-old female 1 para 1 with pelvic pain of unknown origin refractory to medical therapy. Findings Very small uterus small areas of powder burn endometriosis along the left and right uterosacral ligaments. Small right ovarian cyst benign in nature. The colon was adhered to the left lateral sidewall was taken down easily. Normal- appearing gallbladder and liver edge were also noted Description of Procedure the patient was prepped draped in the normal sterile fashion placed in the dorsal lithotomy position. Under excellent general trach anesthesia weighted speculum placed in posterior fornix vagina. Anterior lip of the cervix grasped with single-tooth tenaculum. Bailey's cannula inserted the cervix and attached to the single-tooth for uterine manipulation after emptying the bladder clear urine the weighted speculum was removed gloves were changed. A supraumbilical incision made the Veress needle passed in the abdomen. Abdomen filled with CO2 gas to 15mm Hg. 5mm trocar advanced under direct visualization assuring no injury. The patient placed in Trendelenburg and a 5mm trocar advanced under direct visualization without difficulty. The areas were seen as noted. The small areas of endometriosis on the right and left uterosacral ligament were cauterized at 35 w per 2nd. The right ovary had contained a small cyst in this was opened linear fashion and drained of follicular fluid. The liver gallbladder and appendix all appeared within normal limits. The colon was somewhat stuck on the lateral edge using cautery and sharp dissection this was swept away from the lateral edge. Irrigation undertaken to clear. The trocars removed after gas removed from the abdomen. The incisions closed with 4 Monocryl glue. Patient was awakened went to recovery in satisfactory condition. All sponge, needle, instrument counts were correct. There were no immediate complications Estimated Blood Loss 5 Drains No Packing No Pathology None sent Complications No immediate complications Condition Stable Disposition PACU
[2024-04-29] MEDS: fentaNYL CITRATE INJ (*CRX) 100 MCG/2 ML VIAL 25 MCG IV PUSH ×2 (09:08→09:10)
[2024-04-29] MEDS: oxyCODONE HCL (*CRX) 5 MG TAB IR PO (10:30)
--- NOTE | 2024-04-29 10:34 | SUR.PHASEII ---
DR. RICH GARCIA'S OFFICE CALLED RE: PATIENT IS REQUESTING A PAIN MED SCRIPT TO BE SENT TO HER PHARMACY. OFFICE STAFF SAID THEY WILL SEND ONE IN.
== END | disposition home or self-care (01) ==
PROVIDERS: Visit Provider Obstetrics & Gynecology
PROC: (CPT 49320; principal; 2024-04-29 08:30)
DX: N80.3C2 Endometriosis of the left uterosacral ligament, unspecified depth (principal); N83.291 Other ovarian cyst, right side; F17.290 Nicotine dependence, other tobacco product, uncomplicated; Z79.1 Long term (current) use of non-steroidal anti-inflammatories (NSAID)
CPT/HCPCS: 58662; A9270; J1100; J1885; J2250; J2405; J2704; J3010; J7120

== ENCOUNTER 2024-08-23 15:25 | Outpatient (CLI) | payer OTHER, SELFPAY ==
--- NOTE | ~2024-08-23 | XR_ITS ---
XR abdomen/kub 1V Ordering provider: Sherley Walker APRN History: . R19.4 - Change in bowel habit . Comparison: None. FINDINGS: BOWEL: Nonobstructive bowel gas pattern. ORGANOMEGALY: None. SIGNIFICANT PATHOLOGIC CALCIFICATIONS: None. OTHER: No free air is seen under the diaphragm. IMPRESSION: NO ACUTE ABDOMINAL FINDINGS. Reviewed, dictated and finalized at location A. [facility]
[2024-08-23 15:43] LABS: Hematocrit 37.9 % (37.0-47.0); Hemoglobin 12.6 g/dL (12.0-15.0); Mean Corpuscular HGB Conc 33.2 g/dl (32-36); Mean Corpuscular Hemoglobin 28.8 pg (26-34); Mean Corpuscular Volume 86.7 fl (80-100); Mean Platelet Volume 9.1 fl (7.4-10.4); Platelet Count Result 303 k/mm3 (150-375); Red Blood Count 4.37 M/mm3 (4.2-5.4); Red Cell Distribution Width 12.9 % (11.5-14.5); White Blood Count 6.4 K/mm3 (4.5-10.0)
[2024-08-23 16:12] LABS: Erythrocyte Sedimentation Rate 17 mm/hr (0-20)
[2024-08-23 16:18] LABS: Alanine Aminotransferase 50 U/L (6-35); Albumin Level 4.6 g/dL (3.5-5.1); Alkaline Phosphatase 58 U/L (38-126); Anion Gap 11 mmol/L (4-12); Aspartate Amino Transferase 33 U/L (14-36); Bilirubin,Total 0.4 mg/dL (0.2-1.3); Blood Urea Nitrogen 13 mg/dL (7-17); CRP < 0.5 mg/dL (<1.0); Calcium 9.2 mg/dL (8.4-10.2); Carbon Dioxide 23 mmol/L (22-30); Chloride 107 mmol/L (98-107); Estimated Glomerular Filt Rate > 60; Glucose 84 mg/dL (65-110); Potassium 3.8 mmol/L (3.4-5.0); Sodium 141 mmol/L (137-145)
[2024-08-23 16:39] LABS: Thyroid Stimulating Hormone Reflex 0.848 uIU/mL (0.465-4.68)
[2024-08-28 04:24] LABS: Immunoglobulin A 157 mg/dL (47-310); TTG IGA AB <1.0 U/mL
== END 2024-08-23 15:26 | disposition home or self-care (01) ==
PROVIDERS: Visit Provider Nurse Practitioner
DX: R19.4 Change in bowel habit (principal); K52.9 Noninfective gastroenteritis and colitis, unspecified; R10.32 Left lower quadrant pain; R15.2 Fecal urgency
CPT/HCPCS: 36415; 74018; 80053; 82784; 84443; 85027; 85652; 86140; 86364